=== PATIENT | male | born 1975 | race Caucasian/White ===

== ENCOUNTER 2018-10-27 06:58 | Day surgery (SDC) | payer MEDICAID ==
[~2018-10-27 06:58] MED LIST: Lactated Ringers 1,000 ML IV SCH; Lidocaine 1%/Sod Bicarbonate in NS 8.4% 1 ML Syringe IDERM PRN; Sodium Chloride 0.9% 10 ML Syringe FLUSH PRN
[2018-10-27] MEDS ORDERED: fentaNYL 100 MCG/2 ML SDV ONE (07:10)
[2018-10-27] MEDS ORDERED: Propofol 200 MG/20 ML SDV ONE (07:10)
[2018-10-27] MEDS ORDERED: Midazolam 1 MG/ML 2 ML SDV ONE (07:11)
[2018-10-27] MEDS ORDERED: Lidocaine 1% 4 ML ONE (07:49)
[2018-10-27] MEDS ORDERED: Dexamethasone 4 MG/ML 5 ML MDV ONE (07:49)
[2018-10-27] MEDS ORDERED: Ondansetron 4 MG/2 ML SDV ONE (07:49)
[2018-10-27] MEDS ORDERED: Lidocaine 1% with EPINEPHrine 1:100,000 20 ML MDV ONE (08:08)
[2018-10-27] MEDS ORDERED: Bupivacaine 0.5% 30 ML SDV ONE (08:08)
[2018-10-27] MEDS ORDERED: Bacitracin Oint 15 GM Tube ONE (08:35)
--- NOTE | 2018-10-27 08:45 | PCM.OPNOTE ---
- General Post-Op/Procedure Note Date of Surgery/Procedure: 10/27/18 Operative Procedure(s): excision of RIGHT scalp subcutaneous mass Findings: cystic subcutaneous mass, removed with overlying ellipse of skin Pre Op Diagnosis: RIGHT scalp subcutaneous mass Post-Op Diagnosis: Same Anesthesia Technique: MAC Primary Surgeon: Jean Carlos Sotelo Anesthesia Provider: Chris Hudson Pathology: RIGHT scalp subcutaneous mass Fluid Replacement, Intraop: 500 (crystalloid) EBL in mLs: 2 Complications: None Condition: Good Free Text/Narrative:: Indications for surgery: The patient is a 43 yo male, who presented with a symptomatic and enlarging subcutaneous mass on the RIGHT scalp. The patient was consented for excisional of RIGHT scalp subcutaneous mass. Indications, risks, and benefits were discussed with the patient and her parents in detail. Description of procedure: After surgical consent was verified, the patient was brought to the main OR. The patient was placed prone, and anesthesia performed monitored anesthesia care. The surgical site was prepped and draped in a sterile fashion. The lesion was marked, and it measured about 2 cm. Local anesthetic (1:1 solution of 1% lidocaine with epinephrine and 0.5% bupivacaine - total of 2 cc used throughout the procedure) was injected around the surgical site. An elliptical skin excision was performed, measuring about 18 x 6 mm, with excision down to the subcutaneous fat. The underlying mass appeared to be cystic , measuring about 1 cm. There was a small violation of the cystic wall, with a small amount of thick dark cyst contents extruding out. The cystic mass was removed in its entirety. There was no evidence of underlying fascial invasion. The skin was closed with interrupted 3-0 Nylon sutures x3. The incision was covered with Bacitracin, covered with Telfapad, and secured with Tegaderm/ Mastisol. The patient tolerated the procedure well, was brought out of anesthesia, and transported to the PACU in stable condition. At the end of the case, all needle , instrument, and gauze counts were correct. I was present and scrubbed for the entirety of the case. Jean Carlos Sotelo M.D., F.A.C.S. General Surgery Pager: [phone]
--- NOTE | 2018-10-27 08:55 | PCM48HPAN ---
Post Anesthesia Note - EVALUATION WITHIN 48HRS OF ANESTHETIC Vital Signs in Normal Range: Yes Patient Participated in Evaluation: Yes Respiratory Function Stable: Yes Airway Patent: Yes Cardiovascular Function Stable: Yes Hydration Status Stable: Yes Pain Control Satisfactory: Yes Nausea and Vomiting Control Satisfactory: Yes Mental Status Recovered: Yes
--- NOTE | 2018-10-27 09:02 | PCM.PREANE ---
Preanesthetic Assessment - Procedure Proposed Procedure: Excisional biopsy of right frontal scalp cyst - Anesthesia/Transfusion/Family Hx Anesthesia History: Prior Anesthesia Without Reaction Family History of Anesthesia Reaction: No Type of Transfusion Reactions: Reports: Anaphylaxis - Review of Systems General: No Symptoms Pulmonary: No Symptoms Cardiovascular: Other (Hyperlipidemia) Gastrointestinal: No Symptoms Neurological: No Symptoms Other: Reports: None - Physical Assessment NPO Status Date: 10/26/18 NPO Status Time: 21:00 O2 Sat by Pulse Oximetry: 95 Respiratory Rate: 16 Vital Signs: Last Vital Signs Temp 36.7 C 10/27/18 07:07 Pulse 59 L 10/27/18 07:07 Resp 16 10/27/18 07:07 BP 113/84 10/27/18 07:07 Pulse Ox 95 10/27/18 07:07 Height: 1.83 m Weight: 107.955 kg ASA Class: 2 Mental Status: Alert & Oriented x3 Airway Class: Mallampati = 3 Dentition: Reports: Normal Dentition Thyro-Mental Finger Breadths: 3 Mouth Opening Finger Breadths: 3 ROM/Head Extension: Full Lungs: Clear to Auscultation, Normal Respiratory Effort Cardiovascular: Regular Rate, Regular Rhythm - Allergies Allergies/Adverse Reactions: Allergies Allergy/AdvReac Type Severity Reaction Status Date / Time No Known Allergies Allergy Verified 10/26/18 15:13 - Blood Blood Available: No Product(s) Available: None - Anesthesia Plan Pre-Op Medication Ordered: None - Acknowledgements Anesthesia Type Planned: MAC Pt an Appropriate Candidate for the Planned Anesthesia: Yes Alternatives and Risks of Anesthesia Discussed w Pt/Guardian: Yes Pt/Guardian Understands and Agrees with Anesthesia Plan: Yes PreAnesthesia Questionnaire HEENT History: Reports: Impaired Vision Cardiovascular History: Reports: High Cholesterol Respiratory History: Reports: None Gastrointestinal History: Reports: None Genitourinary History: Reports: Other (See Below) Other Genitourinary History: low GFT, elevated CRE [employer] History: Reports: None Other Musculoskeletal History: knee swelling, left shoulder strain, right knee pain, traumatic eccymosis to right knee, leg repair with hardware to tibia Neurological History: Reports: None Psychiatric History: Reports: None Endocrine/Metabolic History: Reports: None Hematologic History: Reports: None Immunologic History: Reports: None Oncologic (Cancer) History: Reports: None Dermatologic History: Reports: Other (See Below) Other Dermatologic History: pilar cyst, scalp cyst - Past Surgical History Head Surgeries/Procedures: Reports: None Cardiovascular Surgical History: Reports: None Respiratory Surgical History: Reports: None GI Surgical History: Reports: None Endocrine Surgical History: Reports: None Neurological Surgical History: Reports: None Musculoskeletal Surgical History: Reports: None Oncologic Surgical History: Reports: None Dermatological Surgical History: Reports: None - SUBSTANCE USE Smoking Status *Q: Never Smoker Recreational Drug Use History: No - HOME MEDS Home Medications: Home Meds Aspirin [Halfprin] 81 mg PO DAILY 10/26/18 [History] Fenofibric Acid (Choline) [Fenofibric Acid] 135 mg PO DAILY 10/26/18 [History] Invigor Fat Burner 1 tab PO DAILY 10/26/18 [History] Meloxicam 15 mg PO DAILY PRN 10/26/18 [History] - CURRENT (IN HOUSE) MEDS Current Meds: Current Medications Lactated Ringer's (Ringers, Lactated) 1,000 mls @ 125 mls/hr IV ASDIRECTED SOCORRO Stop: 10/27/18 23:00 Last Admin: 10/27/18 07:25 Dose: 125 mls/hr Lidocaine/Sodium Bicarbonate (Buffered Lidocaine 1% In Ns 8.4%) 0.25 ml IDERM ONETIME PRN PRN Reason: Prior to IV Start Stop: 10/27/18 18:00 Last Admin: 10/27/18 07:24 Dose: 0.25 ml Sodium Chloride (Saline Flush) 10 ml FLUSH ASDIRECTED PRN PRN Reason: Keep Vein Open Stop: 10/27/18 18:00 Discontinued Medications Bacitracin (Bacitracin Oint) Confirm Administered Dose 15 gm .ROUTE .STK-MED ONE Stop: 10/27/18 08:36 Bupivacaine HCl (Marcaine 0.5%) Confirm Administered Dose 30 ml .ROUTE .STK-MED ONE Stop: 10/27/18 08:09 Dexamethasone (Dexamethasone) Confirm Administered Dose 20 mg .ROUTE .STK-MED ONE Stop: 10/27/18 07:50 Fentanyl (Sublimaze) Confirm Administered Dose 100 mcg .ROUTE .STK-MED ONE Stop: 10/27/18 07:11 Lidocaine HCl (Xylocaine-Mpf 1%) Confirm Administered Dose 4 mls @ as directed .ROUTE .STK-MED ONE Stop: 10/27/18 07:50 Lidocaine/Epinephrine (Xylocaine 1% With Epinephrine 1:100,000) Confirm Administered Dose 20 ml .ROUTE .[facility]-MED ONE Stop: 10/27/18 08:09 Midazolam HCl (Versed 1 Mg/Ml) Confirm Administered Dose 2 mg .ROUTE .[facility]-MED ONE Stop: 10/27/18 07:12 Ondansetron HCl (Zofran) Confirm Administered Dose 4 mg .ROUTE .[facility]-MED ONE Stop: 10/27/18 07:50 Propofol (Diprivan 20 Ml) Confirm Administered Dose 400 mg .ROUTE .[facility]-MED ONE Stop: 10/27/18 07:11
== END 2018-10-27 09:53 | disposition home or self-care (01) ==
LOC: JD.SDS 06:58
PROVIDERS: ATTEND Student in an Organized Health Care Education/Training Program
DX: L72.11 Pilar cyst (principal); E78.00 Pure hypercholesterolemia, unspecified; Z79.82 Long term (current) use of aspirin; Z79.899 Other long term (current) drug therapy
CPT/HCPCS: 11422; A9270; J1100; J2001; J2250; J2405; J2704; J3010; J3490; J7120; 00300

== ENCOUNTER 2022-11-14 08:26 | Day surgery (SDC) | payer MEDICAID ==
[~2022-11-14 08:26] MED LIST changes: +Sodium Chloride 0.9% 10 ML Syringe FLUSH SCH
[2022-11-14] MEDS ORDERED: Lidocaine 1% 6 ML ONE (09:15)
[2022-11-14] MEDS ORDERED: Propofol 200 MG/20 ML SDV ONE (09:15)
== END 2022-11-14 12:05 | disposition home or self-care (01) ==
LOC: JD.SDS 08:26
PROVIDERS: ATTEND Surgery
DX: Z12.11 Encounter for screening for malignant neoplasm of colon (principal); K63.5 Polyp of colon; F41.9 Anxiety disorder, unspecified; E78.00 Pure hypercholesterolemia, unspecified; J30.9 Allergic rhinitis, unspecified; G47.33 Obstructive sleep apnea (adult) (pediatric); Z79.899 Other long term (current) drug therapy; Z79.82 Long term (current) use of aspirin; Z98.890 Other specified postprocedural states
CPT/HCPCS: 00812; J2704; J3490; J7120